=== PATIENT | male | born 1980 | race Caucasian/White ===

== ENCOUNTER 2019-01-03 15:11 | Emergency (ER) | payer OTHER ==
[2019-01-03 15:26] VITALS: BP 131/67
--- NOTE | 2019-01-03 15:48 | UC ---
Palpitation/Dysrhythmia HP - HPI Summary HPI Summary: 38 yo male with intermittent palpitations that started yesterday Yesterday he had twice or more of his usual caffeine intake recurrent brief episodes of palpitations no CP or SOB - History of Current Complaint Chief Complaint: UCGeneralIllness Stated Complaint: HEART PALPITATIONS Time Seen by Provider: 01/03/19 15:16 Hx Obtained From: Patient Onset/Duration: Sudden Onset, Resolved Timing: Intermittent Episodes Lasting: - seconds Severity Initially: Moderate Severity Currently: None Pain Intensity: 0 Pain Scale Used: 0-10 Numeric Character: Fast Aggravating Factor(s): Caffeine Alleviating Factor(s): Exertion Associated Signs & Symptoms: Negative: Lightheadedness, Dizzy, Syncope, Chest Pain, Shortness of Breath, Diaphoresis, Nausea, Vomiting - Allergy/Home Medications Allergies/Adverse Reactions: Allergies Allergy/AdvReac Type Severity Reaction Status Date / Time No Known Allergies Allergy Verified 01/03/19 15:20 PMH/Surg Hx/FS Hx/Imm Hx Previously Healthy: Yes - Surgical History Surgical History: None - Family History Known Family History: Positive: Hypertension, Diabetes - Social History Alcohol Use: Rare Substance Use Type: None Smoking Status (MU): Never Smoked Tobacco Review of Systems All Other Systems Reviewed And Are Negative: Yes Constitutional: Positive: Negative Skin: Positive: Negative Eyes: Positive: Negative ENT: Positive: Negative Respiratory: Positive: Negative Cardiovascular: Positive: Palpitations Gastrointestinal: Positive: Negative Genitourinary: Positive: Negative Motor: Positive: Negative Neurovascular: Positive: Negative Musculoskeletal: Positive: Negative Neurological: Positive: Negative Psychological: Positive: Negative Physical Exam Triage Information Reviewed: Yes Appearance: Well-Appearing, No Pain Distress, Well-Nourished Vital Signs: Initial Vital Signs Temp 98.6 F 01/03/19 15:21 Pulse 87 01/03/19 15:21 Resp 15 01/03/19 15:21 BP 131/67 01/03/19 15:21 Pulse Ox 100 01/03/19 15:21 Vital Signs Reviewed: Yes Eyes: Positive: Conjunctiva Clear ENT: Positive: Hearing grossly normal. Negative: Nasal congestion, Nasal drainage, Trismus, Muffled voice, Hoarse voice Neck: Positive: Supple, Nontender, No Lymphadenopathy Respiratory: Positive: Lungs clear, Normal breath sounds, No respiratory distress Cardiovascular: Positive: RRR, No Murmur. Negative: Tachycardia, Bradycardia Abdomen Description: Positive: Nontender, No Organomegaly, Soft. Negative: CVA Tenderness (R), CVA Tenderness (L) Bowel Sounds: Positive: Present Musculoskeletal: Positive: ROM Intact, No Edema Neurological: Positive: Alert Psychological Exam: Normal Skin Exam: Normal Diagnostics - EKG Cardiac Rate: NL Cardiac Rhythm: Sinus: Normal Ectopy: None ST Segment: Normal Palpitations Course/Dx - Differential Dx/Diagnosis Provider Diagnosis: Palpitations Discharge - Sign-Out/Discharge Documenting (check all that apply): Patient Departure All imaging exams completed and their final reports reviewed: No Studies - Discharge Plan Condition: Stable Disposition: HOME Patient Education Materials: Heart Palpitations (ED) Referrals: Jeremy Encarnacion DO [Doctor of Osteopathy] - If Needed Additional Instructions: see Dr. Encarnacion about symptoms if they recur your EKG was normal I think your increased caffeine intake yesterday was the cause - Billing Disposition and Condition Condition: STABLE Disposition: Home
== END 2019-01-03 16:01 | disposition home or self-care (01) ==
LOC: UCCORT 15:11
DX: R00.2 Palpitations (principal)
CPT/HCPCS: 93005; 99201; G0463